=== PATIENT | male | born 1960 | race African-American/Black ===

== ENCOUNTER 2019-11-26 07:40 | Inpatient (IN) | payer OTHER ==
[2019-11-26] MEDS ORDERED: NA CHLORIDE 0.9% 500 ML ONE (07:54)
[2019-11-26] MEDS ORDERED: ASPIRIN 81 MG CHEWABLE TABLET ONE (07:54)
[2019-11-26] MEDS ORDERED: MORPHINE 4 MG/ML SYR ONE (07:54)
[2019-11-26] MEDS ORDERED: PROMETHAZINE INJ 25 MG/ML AMP ONE (07:54)
[2019-11-26] MEDS ORDERED: METOPROLOL TARTRATE 5 MG/5 ML INJ IV ONE (07:57)
[2019-11-26] MEDS ORDERED: METOPROLOL TAR 25 MG TAB ONE (08:06)
[2019-11-26 08:21] LABS: Protime INR 0.87
[2019-11-26 08:23] LABS: Absolute Lymphocytes (CBC) 4.6 K/uL (0.7-4.9); Basophils % 0.8 % (0-1.3); Hematocrit 46.7 % (39.6-49.0); Lymphocytes % 43.8 % (15.3-44.8); MPV 9.7 fL (7.6-11.3); RBC Red Blood Cell Count 5.21 M/uL (4.33-5.43)
[2019-11-26 08:36] LABS: ALT/SGPT 39 U/L (12-78); AST/SGOT 19 U/L (15-37); Albumin 3.5 g/dL (3.4-5.0); Alkaline Phosphatase 78 U/L (45-117); Bilirubin Direct 0.2 mg/dL (0-0.2); Bilirubin Total 0.5 mg/dL (0.2-1.0); Magnesium 1.7 mg/dL (1.8-2.4); NT PRO-BNP 256 pg/mL (<125); Protein, Total 7.6 g/dL (6.4-8.2); Troponin (Emerg Dept Use Only) < 0.02 ng/mL (0.0-0.045)
[2019-11-26 08:47] LABS: Potassium 3.9 mmol/L (3.5-5.1)
--- NOTE | 2019-11-26 08:47 | EDPHYS ---
Physician Documentation [facility] Name: Jus Horton Age: 59 yrs Sex: Male : 1960 Arrival Date: 11/26/2019 Time: 07:43 Bed 4 Private MD: ED Physician Mika Hooker HPI: 11/25 07:58 This 59 yrs old Black Male presents to ER via Unassigned with complaints of chest pain. snw 07:58 The patient or guardian reports chest pain that is located primarily in the anterior snw chest wall, bilaterally. Onset: suddenly, this morning. The pain does not radiate. Associated signs and symptoms: Pertinent positives: lightheadedness, near-syncope, palpitations, shortness of breath. The chest pain is described as a heaviness. Duration: The patient or guardian reports a single episode, that is still ongoing, and worsening. Severity of pain: At its worst the pain was severe 9/10. The patient has not experienced similar symptoms in the past. The patient has not recently seen a physician, the patient's primary care provider is Dr. Dr. Tran. Pt takes Metformin for DM, no blood thinners. Historical: - Allergies: 08:00 No Known Allergies; bp - Home Meds: 08:00 metformin 500 mg Oral tab 1 tab 2 times per day [Active]; bp - PMHx: 08:00 Diabetes - NIDDM; Hypertension; bp - Immunization history:: Adult Immunizations unknown. - Social history:: Smoking status: Patient denies any tobacco usage or history of. ROS: 07:58 Constitutional: Negative for fever, chills, and weight loss, Eyes: Negative for injury, snw pain, redness, and discharge, ENT: Negative for injury, pain, and discharge, Neck: Negative for injury, pain, and swelling, Respiratory: Positive for shortness of breath, negative for cough, wheezing, and pleuritic chest pain, Abdomen/GI: Negative for abdominal pain, nausea, vomiting, diarrhea, and constipation, Back: Negative for injury and pain, : Negative for injury, bleeding, discharge, and swelling, MS/Extremity: Negative for injury and deformity, Skin: Negative for injury, rash, and discoloration, Neuro: Negative for headache, weakness, numbness, tingling, and seizure. 07:58 Cardiovascular: Positive for chest pain, palpitations. Exam: 07:53 Head/Face: Normocephalic, atraumatic. Eyes: Pupils equal round and reactive to light, snw extra-ocular motions intact. Lids and lashes normal. Conjunctiva and sclera are non-icteric and not injected. Cornea within normal limits. Periorbital areas with no swelling, redness, or edema. ENT: Nares patent. No nasal discharge, no septal abnormalities noted. Tympanic membranes are normal and external auditory canals are clear. Oropharynx with no redness, swelling, or masses, exudates, or evidence of obstruction, uvula midline. Mucous membranes moist. Neck: Trachea midline, no thyromegaly or masses palpated, and no cervical lymphadenopathy. Supple, full range of motion without nuchal rigidity, or vertebral point tenderness. No Meningismus. Chest/axilla: Normal chest wall appearance and motion. Nontender with no deformity. No lesions are appreciated. 07:53 Abdomen/GI: Soft, non-tender, with normal bowel sounds. No distension or tympany. No guarding or rebound. No evidence of tenderness throughout. Back: No spinal tenderness. No costovertebral tenderness. Full range of motion. Skin: Warm, dry with normal turgor. Normal color with no rashes, no lesions, and no evidence of cellulitis. MS/ Extremity: Pulses equal, no cyanosis. Neurovascular intact. Full, normal range of motion. Neuro: Awake and alert, GCS 15, oriented to person, place, time, and situation. Cranial nerves II-XII grossly intact. Motor strength 5/5 in all extremities. Sensory grossly intact. Cerebellar exam normal. Normal gait. Psych: Awake, alert, with orientation to person, place and time. Behavior, mood, and affect are within normal limits. 07:53 Constitutional: The patient appears awake, anxious. 07:53 Cardiovascular: Rate: tachycardic. 07:53 Cardiovascular: Rhythm: regular. 07:53 Respiratory: mild respiratory distress is noted, Respirations: shallow respirations, tachypnea, Breath sounds: are clear throughout. Vital Signs: 07:45 Pulse 161; bp 08:24 BP 133 / 77; Pulse 64; Resp 19; Pulse Ox 97% ; bp 09:39 BP 130 / 67; Pulse 55; Resp 17 S; Pulse Ox 97% on 2 lpm NC; jl7 10:42 BP 137 / 65; Pulse 58; Resp 21; Pulse Ox 97% ; bp [place] Coma Score: 08:02 Eye Response: spontaneous(4). Verbal Response: oriented(5). Motor Response: obeys snw commands(6). Total: 15. MDM: 07:50 Patient medically screened. snw 08:03 ECG:. The patient was given aspirin in the Emergency Department. Data reviewed: vital snw signs, nurses notes, lab test result(s), EKG. Data interpreted: monitoring tech: rate is 168 beats/min, rhythm is regular, Interpretation: normal rhythm, tachycardia. Counseling: I had a detailed discussion with the patient and/or guardian regarding: the historical points, exam findings, and any diagnostic results supporting the discharge/admit diagnosis. Response to treatment: the patient's symptoms have markedly improved after treatment, pain down to "barely feel it", respiratory rate down to 22, sinus with right BBB on monitor. 08:05 ED course: 6'2", 250#. snw 08:46 Physician consultation: Luciana Zamudio MD was called at 08:47, was contacted at 08:47, snw regarding admission, to the telemetry unit. 11/25 07:51 Order name: Basic Metabolic Panel snw 11/25 07:51 Order name: CBC with Diff snw 11/25 07:51 Order name: LFT's; Complete Time: 08:37 snw 11/25 07:51 Order name: Magnesium; Complete Time: 08:37 snw 11/25 07:51 Order name: NT PRO-BNP; Complete Time: 08:37 snw 11/25 07:51 Order name: PT-INR; Complete Time: 08:28 snw 11/25 07:51 Order name: Troponin (emerg Dept Use Only); Complete Time: 08:37 snw 11/25 07:53 Order name: TSH; Complete Time: 09:03 snw 11/25 07:54 Order name: Basic Metabolic Panel; Complete Time: 08:50 EDMS 11/25 07:54 Order name: CBC with Automated Diff; Complete Time: 08:28 EDMS 11/25 08:04 Order name: Glucose, Ancillary Testing; Complete Time: 08:14 EDMS 11/25 10:12 Order name: D-Dimer; Complete Time: 10:50 EDMS 11/25 10:12 Order name: Troponin I; Complete Time: 11:20 EDMS 11/25 10:12 Order name: Troponin I EDMS 11/25 07:51 Order name: XRAY Chest (1 view); Complete Time: 09:36 snw 11/25 07:51 Order name: EKG; Complete Time: 07:55 snw 11/25 07:51 Order name: Cardiac monitoring; Complete Time: 08:07 snw 11/25 10:12 Order name: CONS Pharmacy Consult EDMS 11/25 10:12 Order name: CONS Physician Consult EDMS 11/25 10:12 Order name: CONS Physician Consult EDMS 11/25 10:12 Order name: Consistent Carb (ADA) 1800 Marlo EDMS 11/25 10:12 Order name: Echo with Doppler EDMS 11/25 10:14 Order name: CORONAVIRUS EDMS 11/25 07:51 Order name: EKG - Nurse/Tech; Complete Time: 08:07 snw 11/25 07:51 Order name: IV Saline Lock; Complete Time: 08:07 snw 11/25 07:51 Order name: Labs collected and sent; Complete Time: 08:06 snw 11/25 07:51 Order name: O2 Per Protocol; Complete Time: 08:06 snw 11/25 07:51 Order name: O2 Sat Monitoring; Complete Time: 08:06 snw EC:53 Rate is 168 beats/min. Rhythm is regular. DE interval is shortened. QT interval is snw shortened. Clinical impression: Sinus tachycardia. Administered Medications: 07:50 Drug: NS 0.9% 500 ml Route: IV; Rate: bolus; Site: left hand; bp 08:20 Follow up: IV Status: Completed infusion; IV Intake: 500ml jl7 07:50 Drug: Aspirin Chewable Tablet 324 mg Route: PO; bp 09:27 Follow up: Response: No adverse reaction jl7 07:50 Drug: Metoprolol 5 mg Route: IVP; Site: left hand; bp 07:55 Drug: Phenergan 6.25 mg Route: IVP; Site: left hand; bp 08:05 Follow up: Response: No adverse reaction jl7 07:55 Drug: Metoprolol 5 mg Route: IVP; Site: left hand; bp 07:57 Follow up: 3rd dose not given per LEACHER. NSR on monitor. aa5 08:00 Follow up: Response: No adverse reaction; Cardiac rhythm changed jl7 07:58 Drug: Lopressor 25 mg Route: PO; aa5 09:29 Follow up: Response: No adverse reaction jl7 08:00 Drug: morphine 4 mg Route: IVP; Site: left hand; bp 08:05 Follow up: Response: No adverse reaction jl7 09:27 Drug: Magnesium 400 mg Route: PO; jl7 09:29 Follow up: Response: No adverse reaction jl7 Disposition: 15:23 Co-signature as Attending Physician, Mika Hooker MD I agree with the assessment and kdr plan of care. Disposition: 11/26/19 08:46 Hospitalization ordered by Luciana Zamudio for Observation. Preliminary diagnosis are Tachycardia, unspecified, Other specified cardiac arrhythmias, Diabetes mellitus due to underlying condition with hyperglycemia. - Bed requested for Telemetry/MedSurg (observation). - Status is Observation. bp - Condition is Stable. - Problem is new. - Symptoms have improved. Signatures: Dispatcher [employer] [facility] Mariajose Gillette, RN RN dw Mika Hooker MD MD [facility] Ramona Alfonso, INFORMATION TECHNOLOGY PROFESSOR-C INFORMATION TECHNOLOGY PROFESSOR-Csnw Mari Meraz, RN RN aa5 Mamie Riddle RN RN jl7 Swapnil Julian, RN RN bp Corrections: (The following items were deleted from the chart) 10:22 08:46 Hospitalization Ordered by Luciana Zamudio MD for Observation. Preliminary dw diagnosis is Tachycardia, unspecified; Other specified cardiac arrhythmias; Diabetes mellitus due to underlying condition with hyperglycemia. Bed requested for Telemetry/MedSurg (observation). Status is Observation. Condition is Stable. Problem is new. Symptoms have improved. snw 11:23 10:22 11/26/2019 08:46 Hospitalization Ordered by Luciana Zamudio MD for Observation. bp Preliminary diagnosis is Tachycardia, unspecified; Other specified cardiac arrhythmias; Diabetes mellitus due to underlying condition with hyperglycemia. Bed requested for Telemetry/MedSurg (observation). Status is Observation. Condition is Stable. Problem is new. Symptoms have improved. dw
--- NOTE | 2019-11-26 08:47 | ER ---
Nurse's Notes [facility] Name: Jus Horton Age: 59 yrs Sex: Male : 1960 Arrival Date: 11/26/2019 Time: 07:43 Bed 4 Private MD: Diagnosis: Tachycardia, unspecified;Other specified cardiac arrhythmias;Diabetes mellitus due to underlying condition with hyperglycemia Presentation: 11/25 07:45 Chief complaint: Patient states: CHEST PAIN AND SOB. Coronavirus screen: Proceed with bp normal triage. Ebola Screen: No symptoms or risks identified at this time. Initial Sepsis Screen: Does the patient meet any 2 criteria? HR > 90 bpm. No. Patient's initial sepsis screen is negative. Does the patient have a suspected source of infection? No. Patient's initial sepsis screen is negative. Risk Assessment: Do you want to hurt yourself or someone else? Patient reports no desire to harm self or others. Onset of symptoms was November 26, 2019. 07:45 Method Of Arrival: Ambulatory bp 07:45 Acuity: ANUSHA 2 bp Triage Assessment: 08:00 General: Appears distressed, uncomfortable, Behavior is cooperative, appropriate for bp age, anxious. Pain: Complains of pain in chest. EENT: No deficits noted. Neuro: Level of Consciousness is awake, alert, obeys commands, Oriented to person, place, time, situation, Appropriate for age. Cardiovascular: Rhythm is SVT. Respiratory: Airway is patent Respiratory effort is even, unlabored, Respiratory pattern is regular, symmetrical. GI: No signs and/or symptoms were reported involving the gastrointestinal system. : No signs and/or symptoms were reported regarding the genitourinary system. Derm: No deficits noted. Musculoskeletal: No deficits noted. Historical: - Allergies: 08:00 No Known Allergies; bp - Home Meds: 08:00 metformin 500 mg Oral tab 1 tab 2 times per day [Active]; bp - PMHx: 08:00 Diabetes - NIDDM; Hypertension; bp - Immunization history:: Adult Immunizations unknown. - Social history:: Smoking status: Patient denies any tobacco usage or history of. Screenin:02 Abuse screen: Denies threats or abuse. Denies injuries from another. Nutritional bp screening: No deficits noted. Tuberculosis screening: No symptoms or risk factors identified. Fall Risk None identified. Assessment: 07:45 General: SEE TRIAGE NOTE. bp 08:25 Reassessment: PT STATES REDUCTION OF S/S. CURRENT ORDERS IN PROCESS, SR ON MONITOR. bp 09:29 Reassessment: Dr. Zamudio at bedside assessing pt. jl7 10:42 Reassessment: ADMIT COMPLETED. BED AVAILABILITY PENDING. bp Vital Signs: 07:45 Pulse 161; bp 08:24 BP 133 / 77; Pulse 64; Resp 19; Pulse Ox 97% ; bp 09:39 BP 130 / 67; Pulse 55; Resp 17 S; Pulse Ox 97% on 2 lpm NC; jl7 10:42 BP 137 / 65; Pulse 58; Resp 21; Pulse Ox 97% ; bp [place] Coma Score: 08:02 Eye Response: spontaneous(4). Verbal Response: oriented(5). Motor Response: obeys snw commands(6). Total: 15. ED Course: 07:43 Patient arrived in ED. em1 07:45 engine monitor on. Pulse ox on. NIBP on. bp 07:45 Inserted saline lock: 20 gauge in left hand, using aseptic technique. Blood collected. bp 07:50 Ramona Alfonso FNP-C is PHCP. snw 07:50 Mika Hooker MD is Attending Physician. snw 07:59 Swapnil Julian, LASHAY is Primary Nurse. bp 08:00 Triage completed. bp 08:01 Arm band placed on right wrist. EKG completed in triage. Results shown to MD. bp 08:02 Patient has correct armband on for positive identification. Bed in low position. Call bp light in reach. Side rails up X2. 08:45 Luciana Zamudio MD is Hospitalizing Provider. snw 09:06 XRAY Chest (1 view) In Process Unspecified. EDMS 10:43 No provider procedures requiring assistance completed. Patient admitted, IV remains in bp place. Administered Medications: 07:50 Drug: NS 0.9% 500 ml Route: IV; Rate: bolus; Site: left hand; bp 08:20 Follow up: IV Status: Completed infusion; IV Intake: 500ml jl7 07:50 Drug: Aspirin Chewable Tablet 324 mg Route: PO; bp 09:27 Follow up: Response: No adverse reaction jl7 07:50 Drug: Metoprolol 5 mg Route: IVP; Site: left hand; bp 07:55 Drug: Phenergan 6.25 mg Route: IVP; Site: left hand; bp 08:05 Follow up: Response: No adverse reaction jl7 07:55 Drug: Metoprolol 5 mg Route: IVP; Site: left hand; bp 07:57 Follow up: 3rd dose not given per MOTORCYCLE SUBASSEMBLY REPAIRER. NSR on monitor. aa5 08:00 Follow up: Response: No adverse reaction; Cardiac rhythm changed jl7 07:58 Drug: Lopressor 25 mg Route: PO; aa5 09:29 Follow up: Response: No adverse reaction jl7 08:00 Drug: morphine 4 mg Route: IVP; Site: left hand; bp 08:05 Follow up: Response: No adverse reaction jl7 09:27 Drug: Magnesium 400 mg Route: PO; jl7 09:29 Follow up: Response: No adverse reaction jl7 Intake: 08:20 IV: 500ml; Total: 500ml. jl7 Outcome: 08:46 Decision to Hospitalize by Provider. snw 11:00 Admitted to Med/surg accompanied by tech, via wheelchair, room 201, with chart, Report bp called to CIELO METZ 11:00 Condition: stable 11:00 Instructed on the need for admit. 11:23 Patient left the ED. bp Signatures: Dispatcher [employer] EDMS Ramona Alfonso, POULTRY VETERINARIAN-C POULTRY VETERINARIAN-Titi Baum em1 Mari Meraz, RN RN aa5 Mamie Riddle RN RN jl7 Swapnil Julian RN RN bp
--- NOTE | 2019-11-26 09:16 | RAD REPORT ---
EXAM DESCRIPTION: RAD - Chest Single View - 11/26/2019 9:05 am CLINICAL HISTORY: CHEST PAIN Chest pain. COMPARISON: Chest Single View dated 12/25/2015; CHEST SINGLE VIEW dated 12/26/2013; CHEST SINGLE VIEW da mateusz 01/02/2013; CHEST SINGLE VIEW dated 09/18/2010 FINDINGS: Portable technique limits examination quality. The lungs are grossly clear. The heart is normal in size. No displaced fractures. IMPRESSION: No acute intrathoracic process suspected.
[2019-11-26] MEDS ORDERED: MAGNESIUM OXIDE 400 MG TAB ONE (09:31)
[2019-11-26] MEDS ORDERED: ALBUTEROL 2.5 MG/3 ML NEB SOL NEB PRN (10:03)
[2019-11-26] MEDS ORDERED: ONDANSETRON 4 MG/2 ML VIAL IV PRN (10:03)
[2019-11-26] MEDS ORDERED: GUAIFENESIN/DM 5 ML UCUP PO PRN (10:07)
[2019-11-26] MEDS ORDERED: GLUCAGON 1 MG/VIAL IM PRN (10:10)
[2019-11-26] MEDS ORDERED: D50W 25 GM/50 ML SYRINGE/VIAL IV PRN (10:10)
--- NOTE | 2019-11-26 10:16 | P.HP ---
Certification for Inpatient Patient admitted to: Observation With expected LOS: <2 Midnights Patient will require the following post-hospital care: None Practitioner: I am a practitioner with admitting privileges, knowledge of patient current condition, hospital course, and medical plan of care. 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 He denies any fever or chills. He denies any nausea. Chest pressure was nonradiating. He presented to the ED because of worsening symptoms. In the ED was noted with elevated heart rate to 160s of with evidence of left bundle branch block. He received metoprolol 5 mg IV x2 as well as p.o. metoprolol and aspirin within 8 min and heart rate improved to the 60s now. His chest symptoms/pressure has also resolved. He denies any history of cardiac disease in the past. He denies any dizziness. He denies any recent travel. He admits to tobacco use but denies any known history of COPD. Repeat EKG is in sinus reading but patient has been admitted for observation for recurrence. His creatinine was noted elevated to 1.33 with BNP of 256. He denies any recent travel Allergies No Known Drug Allergies Allergy (Verified 12/25/15 21:20) Unknown No Known Allergies Allergy (Uncoded 12/28/15 10:21) Unknown Home Medications: Zolpidem Tartrate [Ambien*] 10 mg PO PRN PRN 12/26/13 Metformin HCl [Glucophage*] 1,000 mg PO BIDWM #60 tab 12/27/13 Aspirin [[place] Aspirin] 81 mg PO DAILY #30 tab.chew 12/26/15 Atorvastatin Calcium [Lipitor] 10 mg PO BEDTIME #30 tab 12/26/15 - Past Medical/Surgical History Has patient received pneumonia vaccine in the past: No Diabetic: Yes -: Diabetes mellitus type 2 -: Insomnia -: Neck surgery to the cervical spine with hardware. -: Right rotator cuff repair Psychosocial/ Personal History: He is 22 years. He did not want answer whether he has children. 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 - Social History Smoking Status: Heavy Tobacco smoker (>10 cigarettes/day) Smoking therapy provided: Yes Patient receptive to therapy: Yes Alcohol use: Yes CD- Drugs: No Caffeine use: Yes Place of Residence: Home Review of Systems 10-point ROS is otherwise unremarkable General: Unremarkable Eyes: Unremarkable ENT: Unremarkable Respiratory: Unremarkable Cardiovascular: Chest Pain, Palpitations Gastrointestinal: Unremarkable Genitourinary: Unremarkable Musculoskeletal: Unremarkable Neurological: Unremarkable Physical Examination - Vital Signs Blood Pressure: 133/61 Pulse: 64 Pulse Ox (%): 95 - Physical Exam General: Alert, In no apparent distress, Oriented x3 HEENT: Atraumatic, Normocephalic, PERRLA Neck: Supple, 2+ carotid pulse no bruit, JVD not distended Respiratory: Clear to auscultation bilaterally, Normal air movement Cardiovascular: Normal pulses, Regular rate/rhythm, Normal S1 S2 Gastrointestinal: Normal bowel sounds, Soft and benign, Non-distended Musculoskeletal: No clubbing, No swelling Integumentary: No rashes, No breakdown, No significant lesion Neurological: Normal speech, Normal strength at 5/5 x4 extr, Normal tone - Studies Laboratory Data (last 24 hrs) 11/26/19 07:50: PT 10.3, INR 0.87 11/26/19 07:50: Magnesium 1.7 L, Total Bilirubin 0.5, AST 19, ALT 39, Alkaline Phosphatase 78 11/26/19 07:50: WBC 10.5, Hgb 14.9, Hct 46.7, Plt Count 284 11/26/19 07:50: Sodium 139, Potassium 3.9, BUN 12, Creatinine 1.33 H, Glucose 204 H Imagings Data: Chest x-rays reviewed-no pulmonary edema, normal cardiac silhouette. Images personally reviewed by me EKG shows sinus tachycardia at 162 1 beats per min, ST segment depression with slightly widened QRS complexes consistent with right bundle branch block. Repeat EKG heart rate down to 74 beats per min skilled ST segment depression in the right leads Assessment and Plan - Problems (Diagnosis) (1) Sinus tachycardia Current Visit: Yes Status: Acute (2) Chest pain Current Visit: Yes Status: Acute (3) Acute renal failure Current Visit: Yes Status: Acute (4) Diabetes mellitus Onset Date: 12/26/15 Current Visit: No Status: Chronic Qualifiers: Diabetes mellitus type: type 2 Diabetes mellitus jail insulin use: without jail use Diabetes mellitus complication status: without complication Qualified Code(s): E11.9 - Type 2 diabetes mellitus without complications Discharge Plan: Home Plan to discharge in: 24 Hours - Advance Directives Does patient have a Living Will: No Does patient have a Durable POA for Healthcare: No - Code Status/Comfort Care Code Status Assessed: Yes Physician Review: Patient Assessed, Agree with Above Assessment and Plan Physician Review Additional Text: #Sinus tachycardia/chest pain-possibility of ischemic cardiac disease considered We do serial set of cardiac enzymes Continue aspirin daily Improve sinus tachycardia now although unclear etiology for right bundle branch block. Will consult Cardiology Will obtain echocardiogram start scheduled metoprolol 25 mg b.i.d. with hold parameters May need stress test if negative cardiac enzymes but can be done as outpatient Diabetes mellitus-hold metformin now given elevated creatinine, start insulin sliding scale Chronic tobacco use-cessation advice, to nicotine patch Hyperlipidemia-follow lipid panel -May need statin Advanced directives- patient is full code, discussed DVT prophylaxis-subcutaneous heparin Time Spent Managing Pts Care (In Minutes): 35
[2019-11-26] MEDS: INSULIN -REGULAR HUMAN 50 UNIT/0.5 ML ML SQ SCH ×3 (11:30→20:56)
[2019-11-26 11:34] VITALS: BMI 30.2
[2019-11-26] MEDS: MORPHINE 2 MG/ML SYR IV PRN ×2 (12:49→21:02)
[2019-11-26 16:03] LABS: Urine Appearance CLEAR; Urine Bilirubin NEGATIVE (NEG); Urine Blood NEGATIVE (NEG); Urine Color YELLOW; Urine Glucose NEGATIVE (NEG); Urine Protein 1+ (NEG); Urine pH 5.5 (5.0-7.0)
[2019-11-26 16:05] LABS: Urine Microscopic Reflex ORDER UMIC
[2019-11-26 16:32] LABS: Urine Bacteria <20 /HPF (NONE SEEN); Urine Culture Reflex Order NOT NEEDED; Urine Mucus 1+ /HPF (NONE SEEN); Urine RBC <5 /HPF (NONE SEEN)
[2019-11-26] MEDS: HEPARIN 5000 UNIT/ML 1 ML VIAL SQ SCH (16:43)
[2019-11-26] MEDS: METOPROLOL TAR 25 MG TAB PO SCH (17:23)
[2019-11-26] MEDS: FAMOTIDINE 20 MG/2 ML VIAL IV SCH (20:58)
--- NOTE | 2019-11-26 21:42 | CON ---
Date of Consultation: 11/26/2019 Reason For Consultation: Elevated troponin and chest pain. History Of Present Illness: 59-year-old male, history of diabetes, hypertension, smoker half pack pe r day, presented to the emergency room with chest pain started earlier this morning. 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 In the emergency room, he claimed that his chest pressure is retrosternal going t o his upper extremities and felt his toes are numb. At this point, he is chest pain free, no other c omplaints. Past Medical History: As outlined above in HPI. Medications: Refer to reconciliation sheet for detailed list. Allergies: NO KNOWN DRUG ALLERGIES. Social History: Smokes half a pack per day. Does not drink or use any drugs. Family History: No premature coronary artery disease or cancer. Review of Systems: All systems reviewed. They were negative except what is mentioned in the HPI. Physical Examination: Vital Signs: Showed a temperature of 97.4, pulse 52, breathing at 18, blood pressure 158/72, saturat ing 96% on room air. General: Pleasant, middle aged male, in no apparent distress. HEENT and Neck: Pupils are equal, react to light. Intact eye movements. No JVD. No cervical lymph adenopathy. Neck is supple. Thyroid is not enlarged. Lungs: Clear to auscultation bilaterally. No rhonchi, rales, or crackles. No accessory muscle use. Heart: Regular rate and rhythm. No extra sounds. Abdomen: Soft, nontender. Bowel sounds positive. No organomegaly. No masses or hernia. No rigidi ty or rebound. Extremities: No edema, clubbing, or cyanosis. Intact pulses. Skin: No rash. Neurologic: Alert, awake, oriented x3. No acute focal deficits appreciated. Investigations: EKG is right bundle branch block. Troponin initially 0.36 and 6 hours later, was 0. 84. Echo showed normal EF with no wall motion abnormalities, interpreted by myself. The creatinine is 1.33. Assessment And Plan: 1.Ebh-LG-qxobcdvay myocardial infarction. Echo showed normal wall motion. Troponin is slightly korey vated. Agree with aspirin 81 mg. Recommend anticoagulation with IV heparin for therapeutic PTT and since patient had a full meal within the past hour, we will plan for a coronary angiogram tomorrow mo rning. Monitor for any chest pain or any hemodynamic changes of his EKG. For the mean time, if need be, the nitroglycerin patch 1 inch q.8 hours to the upper chest can be used for symptoms relief. Of note, the patient is clinically asymptomatic at this point. 2.Diabetes. Sugars are being checked by primary physician. Continue to monitor. Thank you for the courtesy of this consultation. /FREDERIC Voice ID: [id number] Report ID: [id number]
[2019-11-27] MEDS: HEPARIN 5000 UNIT/ML 1 ML VIAL SQ SCH ×3 (00:56→18:11)
[2019-11-27 04:45] LABS: Absolute Lymphocytes (CBC) 3.1 K/uL (0.7-4.9); Basophils % 1.2 % (0-1.3); Hematocrit 43.8 % (39.6-49.0); Lymphocytes % 47.3 % (15.3-44.8); MPV 9.6 fL (7.6-11.3); RBC Red Blood Cell Count 4.81 M/uL (4.33-5.43)
[2019-11-27 04:49] LABS: Albumin 3.4 g/dL (3.4-5.0); Bilirubin Total 0.5 mg/dL (0.2-1.0); Protein, Total 7.3 g/dL (6.4-8.2)
[2019-11-27] MEDS: METOPROLOL TAR 25 MG TAB PO SCH ×2 (05:35→17:47)
--- NOTE | 2019-11-27 07:15 | P.PN ---
Subjective Date of Service: 11/27/19 Primary Care Provider: Dr Tran Chief Complaint: Palpitation and chest pain Patient report for sleep and intermittent chest pain. Physical Examination - Vital Signs Temperature: 97.4 F Blood Pressure: 152/79 Pulse: 48 Respirations: 20 Pulse Ox (%): 98 - Physical Exam General: Alert, In no apparent distress, Oriented x3 HEENT: Mucous membr. moist/pink, Sclerae nonicteric Neck: Supple, JVD not distended Respiratory: Clear to auscultation bilaterally, Normal air movement Cardiovascular: No edema, Normal pulses, Regular rate/rhythm, Normal S1 S2 Capillary refill: <2 Seconds Gastrointestinal: Normal bowel sounds, Soft and benign, No tenderness Musculoskeletal: No swelling, No erythema Integumentary: No rashes Neurological: Normal strength at 5/5 x4 extr - Studies Laboratory Data (last 24 hrs) 11/26/19 07:50: PT 10.3, INR 0.87 11/26/19 07:50: Magnesium 1.7 L, Total Bilirubin 0.5, AST 19, ALT 39, Alkaline Phosphatase 78 11/26/19 07:50: WBC 10.5, Hgb 14.9, Hct 46.7, Plt Count 284 11/26/19 07:50: Sodium 139, Potassium 3.9, BUN 12, Creatinine 1.33 H, Glucose 204 H Assessment And Plan - Current Problems (Diagnosis) (1) Chest pain Current Visit: Yes Status: Acute (2) Sinus tachycardia Current Visit: Yes Status: Acute (3) Diabetes mellitus Onset Date: 12/26/15 Current Visit: No Status: Chronic Qualifiers: Diabetes mellitus type: type 2 Diabetes mellitus 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 Continue aspirin, Plavix, metoprolol. Add Plavix. Check lipid profile. Acute renal failure resolved. Physician Review: Patient Assessed, Agree with Above Assessment and Plan Physician Review Additional Text: #Sinus tachycardia/chest pain-possibility of ischemic cardiac disease considered We do serial set of cardiac enzymes Continue aspirin daily Improve sinus tachycardia now although unclear etiology for right bundle branch block. Will consult Cardiology Will obtain echocardiogram start scheduled metoprolol 25 mg b.i.d. with hold parameters May need stress test if negative cardiac enzymes but can be done as outpatient Diabetes mellitus-hold metformin now given elevated creatinine, start insulin sliding scale Chronic tobacco use-cessation advice, to nicotine patch Hyperlipidemia-follow lipid panel -May need statin Advanced directives- patient is full code, discussed DVT prophylaxis-subcutaneous heparin
[2019-11-27] MEDS: INSULIN -REGULAR HUMAN 50 UNIT/0.5 ML ML SQ SCH ×4 (07:30→21:00)
--- NOTE | 2019-11-27 08:41 | ECHO ---
HEIGHT: 6 ft 2 in WEIGHT: 235 lb 0 oz DATE OF STUDY: 11/26/[address]: Luciana Zamudio MD 2-DIMENSIONAL: YES M.MODE: YES DOPPLER: YES COLOR FLOW: YES TDS: NO PORTABLE: NO DEFINITY: NO BUBBLE STUDY: NO DIAGNOSIS: CEREBRAL VASCULAR ACCIDENT CARDIAC HISTORY: CATHERIZATION: NO SURGERY: NO PROSTHETIC VALVE: NO PACEMAKER: NO MEASUREMENTS (cm) DIASTOLIC (NORMALS) SYSTOLIC (NORMALS) IVSd 1.3 (0.6-1.2) LA Diam 3.6 (1.9-4.0) LVEF 78% LVIDd 4.3 (3.5-5.7) LVIDs 2.3 (2.0-3.5) %FS 47% LVPWd 1.2 (0.6-1.2) Ao Diam 3.2 (2.0-3.7) 2 DIMENSIONAL ASSESSMENT: RIGHT ATRIUM: NORMAL LEFT ATRIUM: NORMAL RIGHT VENTRICLE: NORMAL LEFT VENTRICLE: NORMAL TRICUSPID VALVE: MILD TRICUSPID REGURGITATION MITRAL VALVE: NORMAL PULMONIC VALVE: NORMAL AORTIC VALVE: MILD AORTIC REGURGITATION PERICARDIAL EFFUSION: NONE AORTIC ROOT: NORMAL LEFT VENTRICULAR WALL MOTION: NORMAL. DOPPLER/COLOR FLOW: NORMAL. COMMENTS: NORMAL LEFT VENTRICULAR EJECTION FRACTION WITH NORMAL WALL MOTION. MILD TRICUSPID REGURGITATION, MILD AORTIC REGURGITATION. TECHNOLOGIST: ANTHONY BRADY
[2019-11-27] MEDS: ASPIRIN EC 81 MG TAB PO SCH (09:00)
[2019-11-27] MEDS: NICOTINE 21 MG/PAT TD SCH (09:19)
[2019-11-27] MEDS: FAMOTIDINE 20 MG/2 ML VIAL IV SCH ×2 (09:20→20:50)
--- NOTE | 2019-11-27 09:29 | P.CNS ---
Primary Care Provider: Dr Tran Chief Complaint: Palpitation and chest pain History of Present Illness: Pt is a 59 y/o male with past medical hx of DM HTN presenting with complaints of palpitations, chest pain and diaphoresis while he was watching television prior to arrival. Pt states he was diaphoretic even though his airconditioner was on. He presented to the ER for further evaluation. Pt was notably tachycardic on evaluation. He was given 2 doses of metoprolol which resolved the tachycardia. During course of his observation stay, pt was noted to have an uptrending troponin. Cardiology has been consulted and plans to cath patient this afternoon. On admission creatinine was 1.33 which has improved to 1.02. Pt does state he stays hydrated but knows he works a lot outside and is not sure he hydrated enough to make up fro the evaporative sweating. In house patient has been staying well hydrated. Renal has been consulted for PEDRO. Pt denies any nsaid use, herbal supplementation, recent contrast exposure. Allergies No Known Drug Allergies Allergy (Verified 12/25/15 21:20) Unknown No Known Allergies Allergy (Uncoded 12/28/15 10:21) Unknown Home medications list reviewed: Yes Home Medications: Metformin HCl 1,000 mg PO BID 11/26/19 Naproxen Sodium [Aleve] 1 tab PO Q8H PRN 11/26/19 - Past Medical/Surgical History Diabetic: Yes -: Diabetes mellitus type 2 -: Insomnia -: Neck surgery to the cervical spine with hardware. -: Right rotator cuff repair Psychosocial/ Personal History: He is 22 years. He did not want answer whether he has children. 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 - Social History Smoking Status: Former smoker Alcohol use: Yes CD- Drugs: No Caffeine use: No Place of Residence: Home Review of Systems General: Unremarkable Eyes: Unremarkable ENT: Unremarkable Respiratory: Unremarkable Cardiovascular: Unremarkable Gastrointestinal: Unremarkable Genitourinary: Unremarkable Musculoskeletal: Unremarkable Integumentary: Unremarkable Neurological: Unremarkable Lymphatics: Unremarkable Physical Examination Temp Pulse Resp BP Pulse Ox 97.1 F 49 L 16 179/83 H 99 11/27/19 08:00 11/27/19 08:00 11/27/19 08:00 11/27/19 08:00 11/27/19 08:00 General: Alert, Oriented x3 HEENT: Atraumatic, Normocephalic, PERRLA Neck: Supple Respiratory: Clear to auscultation bilaterally, Normal air movement Cardiovascular: No edema, Normal pulses, Normal S1 S2 Capillary refill: <2 Seconds Gastrointestinal: Normal bowel sounds, Soft and benign, No ascites Musculoskeletal: No clubbing, No erythema, No tenderness Integumentary: No rashes Neurological: Normal gait, Normal speech, Normal strength at 5/5 x4 extr, Sensation intact, Cranial nerves 3-12 intact Laboratory Data (last 24 hrs) 11/27/19 04:09: Sodium 140, Potassium 4.0, BUN 12, Creatinine 1.02, Glucose 133 H, Total Bilirubin 0.5, AST 22, ALT 37, Alkaline Phosphatase 69 11/27/19 04:09: WBC 6.6 D, Hgb 13.7, Hct 43.8, Plt Count 243 11/26/19 14:23: Troponin I 0.84 H* 11/26/19 10:30: Troponin I 0.36 H - Problems (1) Acute renal failure Current Visit: Yes Status: Acute (2) Sinus tachycardia Current Visit: Yes Status: Acute (3) Diabetes mellitus Onset Date: 12/26/15 Current Visit: No Status: Chronic Qualifiers: Diabetes mellitus type: type 2 Diabetes mellitus terminal block 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 Pt to undergo cardiac cath later this after noon for NSTEMI. Will hydrate with IVF to decrease chances of contrast associaed nephropathy. Pt already high risk given hx of diabetes and HTN Echo reviewed, no cardiac dysfunction excpet for mild valvular regurgitation. LR @100cc/h for 24h to cover preprocedure and post procedure. Glycemic control. May continue statin, hold off on nephrotoxins today including acei, nsaids, fleece enemas. Thank you for this interesting consult. Will continue to follow along.
[2019-11-27] MEDS ORDERED: Magnesium Sulfate 2gm IVPB 2 G/50 ML BAG IV ONE (10:07)
[2019-11-27] MEDS: Ringers Lactate 1,000 ML IV SCH ×3 (10:24→20:54)
[2019-11-27] MEDS ORDERED: MIDAZOLAM HCL 2 MG/2 ML INJ ONE ×2 (11:43→12:27)
[2019-11-27] MEDS ORDERED: FENTANYL CITR 100 MCG/2 ML ONE (11:43)
[2019-11-27] MEDS ORDERED: ATROPINE SULF 1 MG/10 ML SYR IV ONE (11:43)
[2019-11-27] MEDS ORDERED: NA CHLORIDE 0.9% 0 ML ONE (11:43)
[2019-11-27] MEDS ORDERED: NA CHLORIDE 0.9% 500 ML ONE (11:44)
--- NOTE | 2019-11-27 11:47 | EKG ---
Test Date: 2019-11-26 Test Time: 07:54:20 Machine I Coremaker: RAZ MEASUREMENT RESULTS: Intervals: Rate: 74 UT: 172 QRSD: 152 QT: 388 QTc: 430 [place]: P: 73 UT: 172 QRS: -30 T: 48 INTERPRETIVE STATEMENTS: Normal sinus rhythm Left axis deviation Right bundle branch block Abnormal ECG Compared to ECG 11/26/2019 07:45:41 Wide-QRS tachycardia no longer present Electronically Signed On 11-27-19 11:43:23 CDT by Hunter Tee
[2019-11-27] MEDS ORDERED: HEPA 1000U/500MLS 1,000 UNIT/500 ML BAG IV ONE (12:21)
[2019-11-27] MEDS ORDERED: LIDOCAINE 1% 20 ML MDV ONE (12:21)
[2019-11-27] MEDS: HYDRALAZINE HCL 20 MG/ML VIAL IV PRN ×2 (14:16→22:08)
[2019-11-27] MEDS ORDERED: ALBUTEROL 2.5 MG/3 ML NEB SOL NEB PRN (15:00)
[2019-11-27] MEDS: MORPHINE 2 MG/ML SYR IV PRN (20:50)
[2019-11-28] MEDS: HEPARIN 5000 UNIT/ML 1 ML VIAL SQ SCH ×2 (00:49→08:24)
--- NOTE | 2019-11-28 01:29 | OP ---
Surgeon: Hunter Tee MD Instructor Military Science: Caleb Ovalle. History: Mr. Horton had been admitted with chest pain, positive troponin. 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 He was prepped and draped in the routine sterile fashion, given Versed for sedation along with audrey boo. A 6-Kyrgyz sheath introduced in the right common femoral artery successfully. Angiography ther e was normal. Angio-Seal was used to close the case. Vincent catheter left and right were used to c annulate the left main and right main respectively. Mr. Horton had perfectly normal coronaries witho ut any focal stenosis or significant atherosclerosis or plaquing. LV-gram was done showing normal ej ection fraction, normal left ventricular end-diastolic pressure, normal wall motion. Left heart cath eterization was done using the JR4 catheter. The patient tolerated the procedure well. Complications: There were no complications. Estimated Blood Loss: 5 mL. Anesthesia: Total conscious sedation was 30 minutes. Final Diagnoses: Normal catheterization, elevated troponin, possibly secondary to left ventricular h ypertrophy and hypertension. The patient will be at bedrest for 2 hours and as far as I am concerned , he can go home after that on medical therapy for hypertension and I will see him in the office in the next 2 weeks. BYRON/FREDERIC Voice ID: [id number] Report ID: [id number]
[2019-11-28] MEDS: METOPROLOL TAR 25 MG TAB PO SCH (05:51)
[2019-11-28 05:59] LABS: BUN Blood Urea Nitrogen 10 mg/dL (7-18); Bicarbonate 27 mmol/L (21-32); Glucose Level 133 mg/dL (74-106); Magnesium 2.3 mg/dL (1.8-2.4); Sodium Level 140 mmol/L (136-145)
[2019-11-28] MEDS: HYDRALAZINE HCL 20 MG/ML VIAL IV PRN (06:50)
[2019-11-28] MEDS: Ringers Lactate 1,000 ML IV SCH (06:50)
[2019-11-28] MEDS: AMLODIPINE 10 MG TAB PO SCH ×2 (07:16→09:00)
[2019-11-28] MEDS: INSULIN -REGULAR HUMAN 50 UNIT/0.5 ML ML SQ SCH ×2 (07:30→11:30)
--- NOTE | 2019-11-28 07:31 | P.DS ---
Admission Date: 11/27/19 Discharge Date: 11/28/19 Primary Care Provider: Dr Tran Disposition: ROUTINE DISCHARGE Discharge Condition: FAIR Reason for Admission: Palpitation and chest pain - Problems (1) Chest pain Status: Acute (2) Sinus tachycardia Status: Acute (3) Diabetes mellitus Onset Date: 12/26/15 Status: Chronic Qualifiers: Diabetes mellitus type: type 2 Diabetes mellitus fci insulin use: without fci use Diabetes mellitus complication status: without complication Qualified Code(s): E11.9 - Type 2 diabetes mellitus without complications (4) Acute renal failure Status: Acute Brief History of Present Illness: 59-year-old gentleman with a history of diabetes mellitus type 2 presented to the emergency department with a complaint of palpitation and diaphoresis and chest pressure. His heart rate in the ED was up to 160. Patient was given doses of IV metoprolol. His initial troponin was negative. EKG demonstrated right bundle branch block. Patient was placed under observation for further management. Hospital Course: Troponin trended up. Sinus tachycardia resolved with metoprolol. Cardiology was consulted. Patient underwent cardiac catheterization and was found to have normal coronary arteries. No intervention done. Patient was observed overnight and noted to have elevated blood pressure. His heart rate was down to 48 on low-dose metoprolol. Metoprolol was discontinued. Patient is started on amlodipine for hypertension. He wants to follow with his PCP this week for further management of the hypertension. Cardiology deems patient clinically stable for discharge. Noted elevation in serum creatinine above baseline. Patient was seen by nephrology and hydrated with IV normal saline. Acute renal failure resolved with hydration. NSAID discontinued on discharge. He is also prescribed baby aspirin and lipitor. Vital Signs/Physical Exam: Temp Pulse Resp BP Pulse Ox 98.7 F 48 L 18 174/79 H 97 11/28/19 04:00 11/28/19 05:53 11/28/19 04:00 11/28/19 05:53 11/28/19 04:00 General: Alert, In no apparent distress HEENT: Mucous membr. moist/pink Neck: 2+ carotid pulse no bruit, JVD not distended Respiratory: Clear to auscultation bilaterally, Normal air movement Cardiovascular: No edema, Regular rate/rhythm, Normal S1 S2 Gastrointestinal: Normal bowel sounds, Soft and benign, No tenderness Musculoskeletal: No swelling Integumentary: No rashes Neurological: Normal strength at 5/5 x4 extr Laboratory Data at Discharge: WBC 6.6 K/uL (4.3-10.9) D 11/27/19 04:09 Hgb 13.7 g/dL (13.6-17.9) 11/27/19 04:09 Hct 43.8 % (39.6-49.0) 11/27/19 04:09 Plt Count 243 K/uL (152-406) 11/27/19 04:09 PT 10.3 SECONDS (9.5-12.5) 11/26/19 07:50 INR 0.87 11/26/19 07:50 Sodium 140 mmol/L (136-145) 11/28/19 05:29 Potassium 4.0 mmol/L (3.5-5.1) 11/28/19 05:29 BUN 10 mg/dL (7-18) 11/28/19 05:29 Creatinine 0.95 mg/dL (0.55-1.3) 11/28/19 05:29 Glucose 133 mg/dL (74-106) H 11/28/19 05:29 Magnesium 2.3 mg/dL (1.8-2.4) D 11/28/19 05:29 Total Bilirubin 0.5 mg/dL (0.2-1.0) 11/27/19 04:09 AST 22 U/L (15-37) 11/27/19 04:09 ALT 37 U/L (12-78) 11/27/19 04:09 Alkaline Phosphatase 69 U/L (45-117) 11/27/19 04:09 Troponin I 0.84 ng/mL (0.0-0.045) H* 11/26/19 14:23 Home Medications: Metformin HCl 1,000 mg PO BID 11/26/19 Amlodipine [Norvasc*] 10 mg PO DAILY #30 tab 11/28/19 Aspirin 81 mg PO DAILY #30 tab.chew 11/28/19 Atorvastatin Calcium [Lipitor] 10 mg PO BEDTIME #30 tab 11/28/19 Hydralazine HCl 50 mg PO TID #90 tablet 11/28/19 New Medications: Aspirin 81 mg PO DAILY #30 tab.chew Hydralazine HCl 50 mg PO TID #90 tablet Atorvastatin Calcium [Lipitor] 10 mg PO BEDTIME #30 tab Amlodipine [Norvasc*] 10 mg PO DAILY #30 tab Patient Discharge Instructions: Follow up with PCP within 1 week regarding hypertension. Diet: ADA Activity: Ad cara Time spent managing pt's care (in minutes): 35
[2019-11-28 08:20] VITALS: O2SAT 99
[2019-11-28] MEDS: NICOTINE 21 MG/PAT TD SCH (08:23)
[2019-11-28] MEDS: ASPIRIN EC 81 MG TAB PO SCH (08:24)
[2019-11-28] MEDS: FAMOTIDINE 20 MG/2 ML VIAL IV SCH (08:24)
--- NOTE | 2019-11-28 08:48 | P.PN ---
Subjective Date of Service: 11/28/19 Primary Care Provider: Dr Tran Chief Complaint: Palpitation and chest pain Subjective: Doing well (Denies any chest pain, sob, nausea, vomiting.) Review of Systems General: Unremarkable Eyes: Unremarkable ENT: Unremarkable Respiratory: Unremarkable Cardiovascular: Unremarkable Gastrointestinal: Unremarkable Genitourinary: Unremarkable Musculoskeletal: Unremarkable Integumentary: Unremarkable Neurological: Unremarkable Physical Examination - Vital Signs Temperature: 96.9 F Blood Pressure: 170/71 Pulse: 60 Respirations: 18 Pulse Ox (%): 98 - Physical Exam General: Alert, Oriented x3 HEENT: Atraumatic, Normocephalic, PERRLA Neck: Supple, JVD not distended Respiratory: Clear to auscultation bilaterally, Diminished Cardiovascular: No edema, Normal pulses, Normal S1 S2, No gallops Capillary refill: <2 Seconds Gastrointestinal: Normal bowel sounds Musculoskeletal: No swelling, No erythema, No warmth Integumentary: No rashes Assessment And Plan - Current Problems (Diagnosis) (1) Acute renal failure Status: Acute (2) Sinus tachycardia Status: Acute (3) Diabetes mellitus Onset Date: 12/26/15 Status: Chronic Qualifiers: Diabetes mellitus type: type 2 Diabetes mellitus custodial insulin use: without custodial use Diabetes mellitus complication status: without complication Qualified Code(s): E11.9 - Type 2 diabetes mellitus without complications - Plan Kidney function stable post cardiac cath and back to basline at o.98 Hydrated via IV pre and post cardiac cath. Will discontinue IVF -Hypertension uncontrolled mnost likely 2/2 ivf Should normalize post discontinuation of IVF Diabetes Continue glcyemic control Pt may follow with renal in clinic prn for continued monitoring of kidney function
[2019-11-28] MEDS ORDERED: ACETAMINOPHEN 500 MG TAB PO PRN (10:31)
[2019-11-28] MEDS: HYDRALAZINE HCL 25 MG TABLET PO SCH ×2 (10:41→12:55)
[2019-11-28 22:35] VITALS: BP 170/71; TEMP 96.9
== END 2019-11-28 13:38 | disposition home or self-care (01) | DRG 287 ==
LOC: ER 07:40 → ERHOLD 10:04 → 2ND 11:09 → OBSVTOIN 11-27 07:52
PROVIDERS: ADMIT Internal Medicine; ATTEND Internal Medicine
PROC: 4A023N7 Measurement of Cardiac Sampling and Pressure, Left Heart, Percutaneous Approach (ICD-10-PCS; principal; 2019-11-27)
PROC: B2111ZZ Fluoroscopy of Multiple Coronary Arteries using Low Osmolar Contrast (ICD-10-PCS; 2019-11-27)
PROC: B2151ZZ Fluoroscopy of Left Heart using Low Osmolar Contrast (ICD-10-PCS; 2019-11-27)
DX: R00.0 Tachycardia, unspecified (principal); N17.9 Acute kidney failure, unspecified; I45.10 Unspecified right bundle-branch block; F17.210 Nicotine dependence, cigarettes, uncomplicated; I10 Essential (primary) hypertension; E11.9 Type 2 diabetes mellitus without complications; E78.5 Hyperlipidemia, unspecified; Z79.899 Other long term (current) drug therapy; R07.9 Chest pain, unspecified; R79.89 Other specified abnormal findings of blood chemistry; Z20.828 Contact with and (suspected) exposure to other viral communicable diseases; Z79.84 Long term (current) use of oral hypoglycemic drugs; Z79.82 Long term (current) use of aspirin
CPT/HCPCS: 36415; 71045; 80048; 80053; 80076; 81001; 81003; 81015; 82570; 82947; 83735; 83880; 84300; 84443; 84484; 85025; 85379; 85610; 93005; 93306; 93458; 94760; 96374; 96375; 99285; C1760; C1893; G0378; J0360; J0583; J1644; J2250; J2270; J2550; J3010; J3475; J7040; J7120; U0002

== ENCOUNTER 2021-06-29 21:17 | Emergency (ER) | payer OTHER ==
[2021-06-29 22:59] LABS: Potassium 4.2 mmol/L (3.5-5.1)
[2021-06-29 23:14] LABS: Absolute Lymphocytes (CBC) 2.6 K/uL (0.7-4.9); Hematocrit 31.2 % (39.6-49.0); Lymphocytes % 38.1 % (15.3-44.8); MPV 8.6 fL (7.6-11.3); RBC Red Blood Cell Count 4.04 M/uL (4.33-5.43)
[2021-06-30] MEDS ORDERED: TETANUS & DIPHTHERIA TOX,ADULT 0.5 ML VIAL ONE (00:21)
[2021-06-30] MEDS ORDERED: NA CHLORIDE 0.9% 1,000 ML ONE (00:21)
[2021-06-30] MEDS ORDERED: CEFAZOLIN SODIUM 1 GM/VIAL ONE ×2 (00:21→00:40)
[2021-06-30] MEDS ORDERED: NA CHLORIDE 0.9% 100 ML ONE (00:26)
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
[2021-06-30 01:09] VITALS: BP 159/67; O2SAT 98
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
== END 2021-06-30 01:05 | disposition left against medical advice (07) ==
LOC: ER 21:17
DX: S31.133A Puncture wound of abdominal wall without foreign body, right lower quadrant without penetration into peritoneal cavity, initial encounter (principal); W26.0XXA Contact with knife, initial encounter; Y93.G3 Activity, cooking and baking; Y92.009 Unspecified place in unspecified non-institutional (private) residence as the place of occurrence of the external cause; Z23 Encounter for immunization; F17.210 Nicotine dependence, cigarettes, uncomplicated
CPT/HCPCS: 85025; 80048; 36415; 86900; 86850; 86901; 74177; 90714; Q9967; J7030; J0690 ×2; 90471; 96374; 99284

== ENCOUNTER 2022-07-11 06:42 | Emergency (ER) | payer OTHER ==
[2022-07-11] MEDS ORDERED: NA CHLORIDE 0.9% 1,000 ML ONE (07:33)
[2022-07-11 07:38] LABS: Absolute Lymphocytes (CBC) 1.5 K/uL (0.7-4.9); Hematocrit 31.9 % (39.6-49.0); Lymphocytes % 13.7 % (15.3-44.8); MPV 8.3 fL (7.6-11.3)
[2022-07-11 07:47] LABS: Protime INR 0.9
[2022-07-11 07:58] LABS: Albumin 1.4 g/dL (3.4-5.0); Bilirubin Direct 0.1 mg/dL (0-0.2); Bilirubin Total 0.2 mg/dL (0.2-1.0); Magnesium 2.1 mg/dL (1.6-2.4); Potassium 3.9 mmol/L (3.5-5.1); Protein, Total 5.8 g/dL (6.4-8.2); Troponin High Sensitivity 24.8 pg/mL (<58.9)
[2022-07-11 08:17] LABS: SARS-COV-2 RT PCR NEGATIVE (NEGATIVE)
[2022-07-11 08:42] LABS: Anisocytosis 1+; Blood Morphology Comment NOTED (NOT SEEN); Platelet Estimate ADEQ
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
--- NOTE | 2022-07-11 09:20 | RAD REPORT ---
EXAM DESCRIPTION: CT - Chest For Pe Angio - 07/11/2022 8:42 am CLINICAL HISTORY: Chest pain. syncope, metastatic liver cancer COMPARISON: Abdomen Pelvis W Contrast dated 06/29/2021 TECHNIQUE: CT angiogram of the pulmonary arteries was performed with MIP. All CT scans are performed using dose optimization technique as appropriate and may include automated exposure control or mA/KV adjustment according to patient size. FINDINGS: No evidence of pulmonary thromboembolism. No acute aortic finding demonstrated. Moderate to large right pleural effusion and small left pleural effusion noted. Several nodules are present in the left lung, left upper lobe anteriorly measuring 8 mm medial lymph node measuring 9 mm left lower lobe measuring 11 mm left lower lobe posteriorly 14 mm. Mild atelectas is is also seen posterior right lung base. 16 mm nodule medial right upper lobe abuts the internal mammary artery. A few small mediastinal lymph nodes are present. Mild ascites seen in the upper abdomen. Large right hepatic lobe masses are seen. IMPRESSION: No evidence of pulmonary thromboembolism. Moderate to large right pleural effusion and small left pleural effusion. Multiple noncalcified pulmo nary nodules bilaterally likely indicating metastatic disease.
--- NOTE | 2022-07-11 09:24 | RAD REPORT ---
EXAM DESCRIPTION: CTAbdomen Pelvis W Contrast - 07/11/2022 8:42 am CLINICAL HISTORY: Abdominal pain. Abd pain COMPARISON: Abdomen Pelvis W Contrast dated 06/29/2021; Chest For Pe Angio dated 07/11/2022 TECHNIQUE: Biphasic CT imaging of the abdomen and pelvis was performed with 100 ml non-ionic IV cont rast. All CT scans are performed using dose optimization technique as appropriate and may include automated exposure control or mA/KV adjustment according to patient size. FINDINGS: Moderate right and small left pleural effusion. Mild ascites is present the upper abdomen. Large irregular mass is present in the right lobe of the l iver 10.0 x 11.0 cm. This is compatible with a neoplastic lesion. There is a lack of flow seen right intrahepatic portal vein which may indicate thrombosis. The spleen is normal sized. The pancreas, adrenal glands and kidneys are within normal limits. Mild ascites. No bowel obstruction seen. No free air present. No lytic or blastic bone lesion. Mild lumbar degenerative changes. IMPRESSION: Large irregular mass in the right lobe of the liver most compatible with neoplasia. Gospel Singer tammy thrombosis of the right intrahepatic portal vein branch likely present. Mild ascites.
--- NOTE | 2022-07-11 09:27 | RAD REPORT ---
EXAM DESCRIPTION: RAD - Chest Single View - 07/11/2022 8:05 am CLINICAL HISTORY: syncope Chest pain. COMPARISON: Chest Single View dated 11/26/2019; Chest Single View dated 12/25/2015; CHEST SINGLE VIEW da mateusz 12/26/2013; CHEST SINGLE VIEW dated 01/02/2013 FINDINGS: Portable technique limits examination quality. Moderate right and small left pleural effusion noted. Small areas of nodularity are seen in the left lung. The heart is upper limit of normal in size. No displaced fractures.
--- NOTE | 2022-07-11 10:46 | EDPHYS ---
Physician Documentation [facility] Name: Jus Horton Age: 62 yrs Sex: Male : 1960 Arrival Date: 07/11/2022 Time: 06:44 Bed 15 Private MD: ED Physician Ronak Osborne HPI: 07/11 08:57 This 62 yrs old Black Male presents to ER via EMS with complaints of syncope. rn 08:57 The patient has experienced syncope. Onset: The symptoms/episode began/occurred just rn prior to arrival. Duration: This was a single episode. Associated injury: Head/face:. Current symptoms: Currently, the patient is not experiencing any symptoms. The patient has not experienced similar symptoms in the past. The patient has not recently seen a physician. Pt reports metastatic liver cancer, takes daily treatment, is anemic at baseline. Today felt fine when woke up and went to work, while at work, walked outside and felt lightheaded and dizzy, thinks had syncopal episode. Feels better now. Told head back of head but denies any head/neck/back pain. No pain or injury from fall. Has known ascites. Takes baby aspirin. . Historical: - Allergies: 06:50 No Known Allergies; ke1 - Home Meds: 10:52 metformin 500 mg Oral tab 1 tab 2 times per day [Active]; bp - PMHx: 06:50 Diabetes - NIDDM; Hypertension; ke1 - Immunization history:: Client reports receiving the 2nd dose of the Covid vaccine. - Social history:: Smoking status: Patient reports the use of cigarette tobacco products, smokes one-half pack cigarettes per day. - Immunization history: Last tetanus immunization: - up to date. - Family history:: not pertinent. - Hospitalizations: : No recent hospitalization is reported. ROS: 08:57 Constitutional: Negative for fever, chills, and weight loss, Eyes: Negative for injury, rn pain, redness, and discharge, Neck: Negative for injury, pain, and swelling, Cardiovascular: Negative for chest pain, palpitations, and edema, Respiratory: Negative for shortness of breath, cough, wheezing, and pleuritic chest pain, Abdomen/GI: Negative for abdominal pain, nausea, vomiting, and constipation, + mild diarrhea Back: Negative for injury and pain, MS/Extremity: Negative for injury and deformity, Skin: Negative for injury, rash, and discoloration, Neuro: Negative for headache, numbness, tingling, and seizure. Exam: 08:57 Constitutional: This is a well developed, well nourished patient who is awake, alert, rn and in no acute distress. Head/Face: Normocephalic, atraumatic. Eyes: Periorbital areas with no swelling, redness, or edema. ENT: dry MM Neck: Trachea midline, no cervical lymphadenopathy. Supple, full range of motion without nuchal rigidity, or vertebral point tenderness. No Meningismus. Cardiovascular: Regular rate and rhythm. No pulse deficits. Respiratory: Mild tachypnea, no retractions Abdomen/GI: soft, non-tender Skin: Warm, dry MS/ Extremity: Pulses equal, no cyanosis Neuro: Awake and alert, GCS 15, oriented to person, place, time, and situation. Cranial nerves II-XII grossly intact. Motor strength 5/5 in all extremities. Sensory grossly intact. 13:55 ECG was reviewed by the Attending Physician. rn Vital Signs: 06:45 BP 152 / 81; Pulse 63; Resp 18; Temp 98.4(O); Pulse Ox 99% on R/A; Weight 108.86 kg; ke1 Height 6 ft. 2 in. (187.96 cm); Pain 3/10; 08:00 BP 151 / 68; Pulse 63; Resp 22; Pulse Ox 96% ; bp 10:00 BP 153 / 72; Pulse 63; Resp 15; Pulse Ox 96% ; bp 06:45 Body Mass Index 30.81 (108.86 kg, 187.96 cm) ke1 Cole Coma Score: 06:56 Eye Response: spontaneous(4). Verbal Response: oriented(5). Motor Response: obeys ke1 commands(6). Total: 15. Trauma Score (Adult): 06:56 Eye Response: spontaneous(1); Verbal Response: oriented(1); Motor Response: obeys ke1 commands(2); Systolic BP: > 89 mm Hg(4); Respiratory Rate: 10 to 29 per min(4); [place] Score: 15; Trauma Score: 12 MDM: 06:57 Patient medically screened. rn 10:42 Differential Diagnosis: cardiac arrhythmia, emotional response, GI bleed, idiopathic rn syncope, transient ischemic attack, vasovagal episode, dehydration. Data reviewed: vital signs, nurses notes, lab test result(s), EKG, radiologic studies, CT scan, and as a result, I will discharge patient. Counseling: I had a detailed discussion with the patient and/or guardian regarding: the historical points, exam findings, and any diagnostic results supporting the discharge/admit diagnosis, lab results, radiology results, the need for outpatient follow up, to return to the emergency department if symptoms worsen or persist or if there are any questions or concerns that arise at home. Response to treatment: the patient's symptoms have markedly improved after treatment, the patient's condition has returned to base line, the patient is now symptom free, and as a result, I will discharge patient. Special discussion: I discussed with the patient/guardian in detail that at this point there is no indication for admission to the hospital. It is understood, however, that if the symptoms persist or worsen the patient needs to return immediately for re-evaluation. Based on the history and exam findings, there is no indication for further emergent testing or inpatient evaluation. I discussed with the patient/guardian the need to see the primary care provider for further evaluation of the symptoms. ED course: No acute findings on imaging, only known metastatic cancer and pleural effusions/ascites. Pt has appt to enter clinical trial and evaluation of drainage of fluid. NO indication for emergent admission or transfer at this time. Already on lasix, told to take double dose for 3 days and call his doctor for further instructions.. 07/11 07:20 Order name: Basic Metabolic Panel; Complete Time: 07/11 07:20 Order name: CBC with Diff; Complete Time: 09:07/11 07:20 Order name: Hepatic Function; Complete Time: 07/11 07:20 Order name: Magnesium; Complete Time: :07/11 07:20 Order name: Protime (+inr); Complete Time: 07/11 07:20 Order name: Ptt, Activated; Complete Time: 07/11 07:20 Order name: Troponin High Sensitivity; Complete Time: 07/11 07:20 Order name: CT Head Brain wo Cont; Complete Time: 10:07/11 07:20 Order name: Chest Single View XRAY; Complete Time: 10:07/11 07:20 Order name: CT Chest For PE Angio; Complete Time: 10:05 rn 07/11 07:20 Order name: COVID-19/FLU A+B; Complete Time: 08:26 rn 07/11 08:12 Order name: CT Abd/Pelvis - IV Contrast Only; Complete Time: 10:05 eb 07/11 08:42 Order name: Manual Differential; Complete Time: 09:03 EDMS 07/11 07:20 Order name: EKG; Complete Time: 07: rn 07/11 07:20 Order name: Cardiac monitoring; Complete Time: 07: rn 07/11 07:20 Order name: EKG - Nurse/Tech; Complete Time: 07: rn 07/11 07:20 Order name: IV Saline Lock; Complete Time: 07:30 rn 07/11 07:20 Order name: Labs collected and sent; Complete Time: 07:30 rn 07/11 07:20 Order name: O2 Per Protocol; Complete Time: 07:20 rn 07/11 07:20 Order name: O2 Sat Monitoring; Complete Time: 07:20 rn EC:55 Rate is 62 beats/min. Rhythm is regular. Left axis deviation noted. QRS is positive in rn lead I and negative in lead aVF. QRS interval is prolonged at 166 msec. QT interval is normal. No Q waves. T waves are Normal. No ST changes noted. Clinical impression: NSR w/ Non-specific ST/T Changes. Interpreted by me. Reviewed by me. Administered Medications: 07:30 Drug: NS 0.9% 500 ml Route: IV; Rate: bolus; Site: right antecubital; bp Disposition Summary: 07/11/22 10:45 Discharge Ordered Location: Home rn Problem: new rn Symptoms: have improved rn Condition: Stable rn Diagnosis - Syncope rn - Malignant pleural effusion rn - Malignant ascites rn Followup: rn - With: Private Physician - When: As needed - Reason: Recheck today's complaints, Re-evaluation by your physician Discharge Instructions: - Discharge Summary Sheet rn - Ascites rn - Pleural Effusion rn - Syncope rn Forms: - Medication Reconciliation Form rn - Thank You Letter rn - Antibiotic video journalist - Prescription Opioid Use rn Signatures: Dispatcher [employer] EDMS Ronak Osborne MD MD rn Peltier, Brian RN RN bp Ebrottie, Kouassi, RN RN ke1
--- NOTE | 2022-07-11 10:46 | ER ---
Nurse's Notes [facility] Name: Jus Horton Age: 62 yrs Sex: Male : 1960 Arrival Date: 07/11/2022 Time: 06:44 Bed 15 Private MD: Diagnosis: Syncope;Malignant pleural effusion;Malignant ascites Presentation: 07/11 06:45 Chief complaint: EMS states: Patient started feeling warm and dizzy at work while ke1 sitting in chair, dizziness got worse when patient attempted to walk outside to get cool air and FELL on the concrete floor, hit his head and loss consciousness for about 5 mn. patient on baby aspirin. Coronavirus screen: Vaccine status: Patient reports receiving the 2nd dose of the covid vaccine. Ebola Screen: No symptoms or risks identified at this time. Initial Sepsis Screen: Does the patient meet any 2 criteria? No. Patient's initial sepsis screen is negative. Does the patient have a suspected source of infection? No. Patient's initial sepsis screen is negative. Risk Assessment: Do you want to hurt yourself or someone else? Patient reports no desire to harm self or others. Onset of symptoms was July 11, 2022 at 06:00. 06:45 Method Of Arrival: EMS: [facility] ke 06:45 Acuity: ANUSHA 3 ke1 06:57 Care prior to arrival: None. Mechanism of Injury: Fall from standing position. Trauma ke1 event details:. Trauma Activation: Physician: ED Physician; Name: brandon; Notified At: 06:17; Arrived At: Physician: General Surgeon; Name: ; Notified At: 06:17; Arrived At: Physician: Radiology; Name: ; Notified At: 06:17; Arrived At: Physician: Respiratory; Name: ; Notified At: 06:17; Arrived At: Physician: Lab; Name: ; Notified At: 06:17; Arrived At: Historical: - Allergies: 06:50 No Known Allergies; ke1 - Home Meds: 10:52 metformin 500 mg Oral tab 1 tab 2 times per day [Active]; bp - PMHx: 06:50 Diabetes - NIDDM; Hypertension; ke1 - Immunization history:: Client reports receiving the 2nd dose of the Covid vaccine. - Social history:: Smoking status: Patient reports the use of cigarette tobacco products, smokes one-half pack cigarettes per day. - Immunization history: Last tetanus immunization: - up to date. - Family history:: not pertinent. - Hospitalizations: : No recent hospitalization is reported. Screenin:55 [facility] ED Fall Risk Assessment (Adult) History of falling in the last 3 months, ke1 including since admission Yes- physiologic fall (2 pts) Confusion or Disorientation No (0 pts) Intoxicated or Sedated No (0 pts) Impaired Gait No (0 pts) Mobility Assist Device Used No (0 pt) Altered Elimination No (0 pt) Score/Fall Risk Level 0 - 2 = Low Risk Oriented to surroundings, Maintained a safe environment, Educated pt \T\ family on fall prevention, incl call for assistance when getting out of bed, Assessed \T\ reinforced patient's understanding of fall precautions. Abuse screen: Denies threats or abuse. Nutritional screening: No deficits noted. Tuberculosis screening: No symptoms or risk factors identified. Primary Survey: 06:51 NO uncontrolled hemorrhage observed. A: The client is alert. Airway: patent, Oral ke1 cavity: clear, gag reflex present, Trachea midline. Breathing/Chest: Respiratory effort: spontaneous, Breath sounds: clear, Respiratory pattern: regular, Chest inspection: symmetrical rise and fall of the chest. Circulation: Pulses: palpable right radial artery, left radial artery, bilateral radial, brachial, femoral, popliteal, posterior tibial and and dorsalis pedis arteries.. Skin color: pink. Disability Pupils are equal, round, reactive to light and accommodation. Exposure/Environment: All clothing and personal items were removed. Forensic evidence collection is not deemed to be indicated at this time. Items placed in patient belonging bag. There is no evidence of uncontrolled external bleeding. No obvious injuries are noted at this time. 06:57 Reassessment Alertness and Airway: Airway Patent Breathing: Respiratory effort ke1 Spontaneous Circulation: Heart rhythm Sinus rhythm Heart tones Present Pulses Palpable Color [place] Temperature Warm Disability: Pupils Pupils are equal, round, reactive to light and accomodation. Secondary Survey: 07:00 HEENT: Head No injury/deformity. Gastrointestinal: Abdomen is soft, flat, Bowel sounds ke1 present in all quadrants. : No deficits noted. Musculoskeletal: Range of motion: intact in all extremities. Assessment: 06:53 General: Appears in no apparent distress. Behavior is appropriate for age. Pain: ke1 Complains of pain in headache Pain does not radiate. Pain currently is 2 out of 10 on a pain scale. at worst was 2 out of 10 on a pain scale. level that patient reports is acceptable is 3 out of 10 on a pain scale. Quality of pain is described as aching. 07:00 Reassessment: RECD REPORT FROM RAMIREZ METZ. 62YO BM P/W WITNESSED SYNCOPAL FALL AT WORK. bp 08:00 Reassessment: PT TO CT. bp 10:00 Reassessment: MD AT B/S FOR DISPO. bp 10:50 Reassessment: PT DC HOME WITH FAMILY. bp Vital Signs: 06:45 BP 152 / 81; Pulse 63; Resp 18; Temp 98.4(O); Pulse Ox 99% on R/A; Weight 108.86 kg; ke1 Height 6 ft. 2 in. (187.96 cm); Pain 3/10; 08:00 BP 151 / 68; Pulse 63; Resp 22; Pulse Ox 96% ; bp 10:00 BP 153 / 72; Pulse 63; Resp 15; Pulse Ox 96% ; bp 06:45 Body Mass Index 30.81 (108.86 kg, 187.96 cm) ke1 [place] Score: 06:56 Eye Response: spontaneous(4). Verbal Response: oriented(5). Motor Response: obeys ke1 commands(6). Total: 15. Trauma Score (Adult): 06:56 Eye Response: spontaneous(1); Verbal Response: oriented(1); Motor Response: obeys ke1 commands(2); Systolic BP: > 89 mm Hg(4); Respiratory Rate: 10 to 29 per min(4); [place] Score: 15; Trauma Score: 12 ED Course: 06:44 Patient arrived in ED. ke1 06:44 Ramirez Butler RN is Primary Nurse. ke1 06:50 Triage completed. ke1 06:57 Ronak Osborne MD is Attending Physician. rn 06:57 Arm band placed on left wrist. ke1 06:59 Bed in low position. Call light in reach. Side rails up X 1. Side rails up X2. ke1 06:59 Patient maintains SpO2 saturation greater than 95% on room air. ke1 06:59 Thermoregulation: warm blanket given to patient. ke1 07:17 Primary Nurse role handed off by Ramirez Butler, LASHAY bp 07:17 Swapnil Julian, RN is Primary Nurse. bp 07:30 Inserted saline lock: 20 gauge in right antecubital area, using aseptic technique. bp Blood collected. 08:07 Chest Single View XRAY In Process Unspecified. EDMS 08:43 CT Chest For PE Angio In Process Unspecified. EDMS 08:44 CT Abd/Pelvis - IV Contrast Only In Process Unspecified. EDMS 08:48 CT Head Brain wo Cont In Process Unspecified. EDMS 10:50 No provider procedures requiring assistance completed. IV discontinued, intact, bp bleeding controlled, No redness/swelling at site. Pressure dressing applied. Administered Medications: 07:30 Drug: NS 0.9% 500 ml Route: IV; Rate: bolus; Site: right antecubital; bp Medication: 10:50 VIS not applicable for this client. bp Intake: 10:51 IV: 500ml; Total: 500ml. bp Output: 10:51 Urine: 0ml; Total: 0ml. bp Outcome: 10:45 Discharge ordered by MD. rn 10:50 Discharged to home ambulatory, with family. bp 10:50 Condition: stable 10:50 Discharge instructions given to patient, Instructed on discharge instructions, follow up and referral plans. Demonstrated understanding of instructions, follow-up care. 10:52 Patient's length of stay was not longer than 2 hours. bp 10:52 Patient left the ED. bp Signatures: Dispatcher [employer] EDIL Ronak Osborne MD MD rn Peltier, Brian, RN RN bp Ramirez Butler RN RN ke1
[2022-07-11 11:31] VITALS: TEMP 98.4
[2022-07-11 13:09] VITALS: BP 151/68; O2SAT 96
--- NOTE | 2022-07-12 16:52 | EKG ---
Test Date: 2022-07-11 Test Time: 06:51:13 Clamshell Engineer: SHASHI MEASUREMENT RESULTS: Intervals: Rate: 62 OH: 132 QRSD: 166 QT: 468 QTc: 475 [place]: P: 82 OH: 132 QRS: -36 T: 44 INTERPRETIVE STATEMENTS: Normal sinus rhythm Left axis deviation Right bundle branch block Abnormal ECG Compared to ECG 11/26/2019 07:54:20 No significant changes Electronically Signed On 07-12-22 16:50:41 BUSINESS PERFORMANCE MANAGER by Willem Chester
== END 2022-07-11 10:52 | disposition home or self-care (01) ==
LOC: ER 06:42
DX: C22.9 Malignant neoplasm of liver, not specified as primary or secondary (principal); J91.0 Malignant pleural effusion; R18.0 Malignant ascites; E11.9 Type 2 diabetes mellitus without complications; I10 Essential (primary) hypertension; F17.210 Nicotine dependence, cigarettes, uncomplicated; Z20.822 Contact with and (suspected) exposure to COVID-19
CPT/HCPCS: 93005; 85025; 80048; 36415; 83735; 85610; 80076; 85730; 84484; 0240U; 70450; 71275; 74177; 71045; 99284; Q9967; J7030